=== PATIENT | male | born 2005 | race Caucasian/White ===

== ENCOUNTER 2024-05-24 08:48 | Emergency (ER) | payer MEDICAID, SELFPAY ==
[2024-05-24 09:06] VITALS: BP 149/74; PULSE 76; TEMP 36.8; O2SAT 96; BMI 31.8
--- NOTE | 2024-05-24 09:27 | W.ED.URI ---
HPI - URI/Sore Throat General: Chief Complaint: Upper Respiratory Infection Stated Complaint: fever,cough,congestion Time Seen by Provider: 05/24/24 08:57 Source: patient and family Mode of arrival: ambulatory Limitations: no limitations History of Present Illness: Patient is a 18-year-old male who presents to ED today along with his [id number] infant and here for evaluation of a cough, congestion, sore throat, low-grade fevers over the past 2 days. is sick with similar symptoms. states she just got over similar symptoms. No vomiting or diarrhea. He arrives here in no acute distress with stable vital signs. MD elicited complaint: fever, cough and nasal congestion Onset (ago): day(s) Consistency: constant Severity: mild Description of mucous: clear Able to tolerate fluids by mouth: Yes Exacerbating factors: nothing Relieving factors: nothing Context: sick contacts Associated symptoms: Reports cough, fever(s) (low grade) and nasal congestion; Deny abdominal pain, chills, chest pain, diarrhea, ear or mastoid pain, headache(s), sinus pain or vomiting Treatments prior to arrival: none Review of Systems Const: Reports: fever(s) (low grade); Denies: chills, body aches, fatigue or malaise Eyes: Denies: change in vision, blurry vision, photophobia, eye discomfort or eye discharge ENMT: Reports: throat pain and nasal congestion; Denies: enlarged tonsils, swelling of lips/tongue, oral sores, ear or mastoid pain, ear discharge, nasal discharge, post nasal drip or sinus pain Card: Denies: chest pain Resp: Reports: non-productive cough and chest congestion; Denies: dyspnea, productive cough, wheezing or hemoptysis GI: Denies: abdominal pain, vomiting or diarrhea Skin/Breast: Denies: rash Neuro: Denies: headache(s) All/Imm: Denies: facial swelling or seasonal rhinorrhea Physical Exam Const: COMMON NORMALS: no acute distress, average body habitus, patient oriented x3, no limitations, healthy appearing, alert and well nourished HENMT: COMMON NORMALS: normocephalic, atraumatic, hearing grossly normal bilaterally, external ears normal, EAC's normal, TM's normal bilaterally, Normal external nose present, Normal nasal mucous membranes and turbinates present, moist oral mucous membranes and oropharynx normal HEAD & SCALP: normal to inspection, normocephalic and atraumatic FACE & SINUS: normal facial exam and sinuses nontender NOSE: Normal external nose present and Normal nasal mucous membranes and turbinates present EXTERNAL EAR: Yes external ears normal EXTERNAL AUDITORY CANAL: EAC's normal TYMPANIC MEMBRANE: TM's normal bilaterally THROAT: posterior oropharynx normal, tonsils normal and uvula midline Eye: COMMON NORMALS: Equal, round and reactive pupils present, EOMs intact bilaterally and conjunctivae normal CONJUNCTIVA: Yes conjunctivae normal PUPIL: Yes Equal, round and reactive pupils present Neck/C-Spine: COMMON NORMALS: no lymphadenopathy Resp: COMMON NORMALS: normal respiratory effort and clear to auscultation bilaterally AUSCULTATION: clear to auscultation bilaterally Cardio: COMMON NORMALS: regular rate and regular rhythm RATE: regular rate RHYTHM: regular rhythm Neuro: COMMON NORMALS: patient oriented x3 SENSORIUM/ORIENTATION: Yes alert Skin: COMMON NORMALS: no rashes or lesions noted GENERAL SKIN EXAM: no rashes or lesions noted Course Vital Signs: Vital signs: Vital Signs Temperature 98.2 F 05/24/24 09:06 Pulse Rate 76 05/24/24 09:06 Blood Pressure 149/74 05/24/24 09:06 Pulse Oximetry 96 05/24/24 09:06 Oxygen Delivery Me thod Room Air 05/24/24 09:06 MDM - URI/Sore Throat Medical Decision Making Patient appears in no acute distress. His vital signs are stable. Respiratory panel collected and pending. He will be allowed discharge with recommendation for conservative therapies at home. Differential Diagnosis Likely upper respiratory infection, croup, sinusitis, viral infection, bronchitis, influenza and pharyngitis Medical Records I reviewed the patient's medical records. No radiology studies performed this visit Discharge Plan Discharge Patient Disposition: Home Clinical Impression: Upper respiratory infection Qualifiers: URI type: unspecified URI Qualified Code(s): J06.9 - Acute upper respiratory infection, unspecified Condition: Stable Discharge Orders: Discharge ED (Routine); Ordered 05/24/24 Ordered By: Jessica Cardoza Patient Instructions: Upper Respiratory Infection (DC) Coding Level of Care Code ED [employer] for [facility]
[2024-05-24 11:14] LABS: Adenovirus Not Detected (NOT DETECT); Chlamydia Pneumoniae Not Detected (NOT DETECT); Coronavirus 229E,HKU1,NL63,OC4 Not Detected (NOT DETECT); Human Metapneumovirus Not Detected (NOT DETECT); Human Rhinovirus/Enterovirus Not Detected (NOT DETECT); Influenza A Not Detected (NOT DETECT); Influenza A H1 Not Detected (NOT DETECT); Influenza A H1-2009 Not Detected (NOT DETECT); Influenza A H3 Not Detected (NOT DETECT); Influenza B Not Detected (NOT DETECT); Mycoplasma Pneumoniae Not Detected (NOT DETECT); Parainfluenza Virus Type 1 Not Detected (NOT DETECT); Parainfluenza Virus Type 2 Not Detected (NOT DETECT); Parainfluenza Virus Type 3 Not Detected (NOT DETECT); Parainfluenza Virus Type 4 Not Detected (NOT DETECT); Respiratory Syncytial Virus A Not Detected (NOT DETECT); Respiratory Syncytial Virus B Not Detected (NOT DETECT); SARS-COV-2 Not Detected (NOT DETECT)
== END 2024-05-24 09:35 | disposition home or self-care (01) ==
PROVIDERS: Emergency Provider Physician Assistant
DX: J06.9 Acute upper respiratory infection, unspecified (principal)
CPT/HCPCS: 87486; 87581; 87633; 99283